=== PATIENT | male | born 1975 ===

== ENCOUNTER 2018-04-10 09:46 | Outpatient (CLI) | payer OTHER | END 2018-04-10 09:47 | disposition home or self-care (01) | LOC: C.LAB 09:46 | DX: E78.2 Mixed hyperlipidemia (principal); E55.9 Vitamin D deficiency, unspecified ==

== ENCOUNTER 2018-04-24 10:09 | Outpatient (CLI) | payer OTHER | END 2018-04-24 10:10 | disposition home or self-care (01) | LOC: C.RADIC 10:09 ==

== ENCOUNTER 2018-06-26 09:29 | Outpatient (CLI) | payer OTHER | END 2018-06-26 09:30 | disposition home or self-care (01) | LOC: C.LAB 09:29 | DX: E05.80 Other thyrotoxicosis without thyrotoxic crisis or storm (principal); E78.2 Mixed hyperlipidemia ==